=== PATIENT | male | born 1935 | race Caucasian/White ===

== ENCOUNTER → 2016-10-07 | Outpatient (CLI) | payer MEDICARE, BC ==
[~2016-10-07] MED LIST: ACTOS 45MG45 MG/TAB PO; ACTOS30 MG PO; AMLOPIDINE; AMLOPIDINE PO; ASPIR-LOW81 MG PO; ASPIRIN 32325 MG/TAB PO; ASPIRIN E.C. 8181 MG PO; AVODART0.5 MG PO; BUPROPION SR150 MG PO; CEPHALEXIN500 M1 PO; CLARITIN 1010 MG/TAB PO; CLONAZEPAM PO; COLACE 100100 MG/CAP PO; COREG 6.256.25 MG/TA PO; COZAAR100 MG PO; CRESTOR 10MG10 MG PO; DITROPAN 5MG TAB5 MG PO; ENALAPRIL; ENALAPRIL PO; EXFORGE 5 MG-321 TAB PO; EXFORGE 5/320 PO; EXFORGE PO; FLOMAX 0.40.4 MG/CAP PO; GLUCOTROL5 MG PO; HCTZ 25MG25 MG PO; HCTZ PO; HUMALOG 75/2100 U/ML SQ; HUMALOG100 U/ML SQ; KEPPRA 500MG500 MG PO; KLONOPIN 0.5MG0.5 MG PO; LANTUS100 U/ML SQ; LIPITOR 10MG10 MG PO; LIPOFLAVONOID PO; LOPRESSOR 225 MG/TAB PO; LOPRESSOR 550 MG/TAB PO; LORATADINE10 MG PO; LUMIGAN; LUMIGAN 2.5 ML2.5 M1 OP; LUMIGAN EYE GTTS OU; LUMIGAN IO; MULTIPLE VITAMI1 CAP PO; MVI PO; NORCO 325 MG-51 TAB PO; NORVASC 5MG5 MG/TAB PO; POTASSIUM99 MG PO; PRAVACHOL 40MG40 MG PO; PROZAC 10MG10 MG PO; SENNA8.6 MG PO; TOPROL XL25 MG PO; TOVIAZ4 MG PO; VASOTEC20 MG PO; [UNRECOGNIZED DRUG - OTHER] PO
== END ==
LOC: COL.RAD 09:45
DX: D69.49 Other primary thrombocytopenia (principal)

== ENCOUNTER 2017-10-21 17:08 | Emergency (ER) | payer MEDICARE, BC ==
[~2017-10-21] VITALS: Ht 167.6 cm; Wt 86.4 kg
[~2017-10-21 17:08] MED LIST changes: +ARICEPT10 MG PO; +CARDIZEM CD 18180 MG PO; +DEMADEX10 MG PO; +DIOVAN 160MG160 MG PO; +GLUCOTROL 5M5 MG/TAB PO; -GLUCOTROL5 MG PO; +LEVEMIR100 U/ML SQ; +NAMENDA 10MG TA10 MG PO; +RESTORIL 1515 MG/CAP PO; +ZAROXOLYN 2.52.5 MG PO
[2017-10-21 17:17] VITALS: TEMP 96.9
[2017-10-21 18:22] LABS: COLLECTION METHOD CLEAN CATCH
[2017-10-21 18:29] LABS: PH 5 (5-8); SQUAMOUS EPITHELIAL 0-2 /hpf; URINE APPEARANCE Clear; URINE BACTERIA None Seen /hpf; URINE BILIRUBIN Negative (NEGATIVE); URINE BLOOD Negative (NEGATIVE); URINE COLOR Yellow; URINE GLUCOSE Negative (NEGATIVE); URINE KETONE Negative (NEGATIVE); URINE LEUKOCYTE ESTERASE Negative (NEGATIVE); URINE NITRATE Negative (NEGATIVE); URINE PROTEIN(semi-quant) 2+ (NEGATIVE); URINE RBC 0-2 /hpf; URINE UROBILINOGEN Negative (NEGATIVE)
[2017-10-21 19:31] LABS: BASO # 0.1 (0.0-0.2); BASO % 0.5 % (0.0-2.0); EOS # 0.1 (0.0-0.7); EOS % 1.3 % (0-4.0); GRAN # 8.2 (1.4-6.5); GRAN % 78.9 % (42.2-75.2); LYMPH # 1.2 (1.2-3.4); LYMPH % 11.4 % (20.0-51.0); MEAN CELL VOLUME 92 fl (80.0-100.0); MEAN CORPUSCULAR HGB CONC 34 g/dl (33.0-37.0); MEAN PLATELET VOLUME 10.9 fl (7.4-10.4); MONO # 0.8 (0.1-0.6); MONO % 7.6 % (1.7-9.3); PLATELET COUNT 130 K/mm3 (130-400); RED BLOOD COUNT 3.63 M/mm3 (4.20-5.60); REDCELL DISTRIBUTION WIDTH-CV 12.8 % (11.5-14.5)
[2017-10-21 19:33] LABS: HEMATOCRIT 33.4 % (42.0-52.0); HEMOGLOBIN 11.2 g/dl (13.5-18.0); MEAN CORPUSCULAR HEMOGLOBIN 31 pg (27.0-31.0)
[2017-10-21 19:37] LABS: ALBUMIN 3.8 gm/dL (3.5-5.0); BILIRUBIN,TOTAL 0.4 mg/dL (0.0-1.0); CALCIUM 8.8 mg/dL (8.4-10.2); CREATININE, serum 2.23 mg/dL (0.66-1.25); POTASSIUM 3.5 mmol/L (3.4-5.0); TOTAL PROTEIN 6.8 gm/dL (6.4-8.2)
[2017-10-21 20:17] VITALS: BP 188/90; PULSE 62
== END 2017-10-21 20:20 | disposition home or self-care (01) ==
LOC: COL.ER 17:08
PROVIDERS: Family Medicine
DX: S06.0X9A Concussion with loss of consciousness of unspecified duration, initial encounter (principal); S00.83XA Contusion of other part of head, initial encounter; E11.9 Type 2 diabetes mellitus without complications; I50.9 Heart failure, unspecified; F03.90 Unspecified dementia, unspecified severity, without behavioral disturbance, psychotic disturbance, mood disturbance, and anxiety; Z79.82 Long term (current) use of aspirin; Z79.4 Long term (current) use of insulin; W01.198A Fall on same level from slipping, tripping and stumbling with subsequent striking against other object, initial encounter
CPT/HCPCS: J1815; J7030

== ENCOUNTER → 2018-04-04 | Outpatient (CLI) | payer MEDICARE, BC | LOC: COL.RAD 13:25 | DX: I87.1 Compression of vein (principal); Z95.0 Presence of cardiac pacemaker | CPT/HCPCS: Q9967 ==

== ENCOUNTER 2018-06-02 09:17 | Emergency (ER) | payer MEDICARE, BC ==
[~2018-06-02] VITALS: Ht 167.6 cm; Wt 81.8 kg
[2018-06-02 10:31] LABS: BASO # 0.1 (0.0-0.2); BASO % 0.4 % (0.0-2.0); EOS # 0.5 (0.0-0.7); EOS % 4.2 % (0-4.0); GRAN # 9.6 (1.4-6.5); GRAN % 74.8 % (42.2-75.2); HEMATOCRIT 37.7 % (42.0-52.0); HEMOGLOBIN 12.2 g/dl (13.5-18.0); LYMPH # 1.5 (1.2-3.4); LYMPH % 11.9 % (20.0-51.0); MEAN CELL VOLUME 93 fl (80.0-100.0); MEAN CORPUSCULAR HEMOGLOBIN 30 pg (27.0-31.0); MEAN CORPUSCULAR HGB CONC 32 g/dl (33.0-37.0); MEAN PLATELET VOLUME 10.7 fl (7.4-10.4); MONO # 1.1 (0.1-0.6); MONO % 8.4 % (1.7-9.3); PLATELET COUNT 127 K/mm3 (130-400); RED BLOOD COUNT 4.04 M/mm3 (4.20-5.60); REDCELL DISTRIBUTION WIDTH-CV 12.7 % (11.5-14.5)
[2018-06-02 10:42] LABS: ALBUMIN 4.3 gm/dL (3.5-5.0); BILIRUBIN,TOTAL 0.6 mg/dL (0.0-1.0); CALCIUM 10.3 mg/dL (8.4-10.2); CREATININE, serum 2.87 mg/dL (0.66-1.25); MAGNESIUM 2.3 mg/dL (1.6-2.3); PHOSPHOROUS 3.1 mg/dL (2.5-4.5); POTASSIUM 3.6 mmol/L (3.4-5.0); TOTAL PROTEIN 7.9 gm/dL (6.4-8.2)
[2018-06-02 10:55] LABS: TROPONIN-I 0.057 ng/mL (0.000-0.034)
[2018-06-02] MEDS ORDERED: CLARITIN 1010 MG/TAB PO (10:58)
[2018-06-02] MEDS ORDERED: SINEMET CR1 UDTAB.S1 PO (10:58)
[2018-06-02] MEDS ORDERED: ATACAND 16M16 MG/TAB PO (11:04)
[2018-06-02] MEDS ORDERED: TURMERIC500 MG PO (11:05)
[2018-06-02 11:25] LABS: COLLECTION METHOD CLEAN CATCH
[2018-06-02 11:32] LABS: PH 7 (5-8); SQUAMOUS EPITHELIAL None Seen /hpf; URINE APPEARANCE Clear; URINE BACTERIA None Seen /hpf; URINE BILIRUBIN Negative (NEGATIVE); URINE BLOOD 1+ (NEGATIVE); URINE COLOR Straw; URINE GLUCOSE 2+ (NEGATIVE); URINE KETONE Negative (NEGATIVE); URINE LEUKOCYTE ESTERASE Negative (NEGATIVE); URINE NITRATE Negative (NEGATIVE); URINE PROTEIN(semi-quant) 2+ (NEGATIVE); URINE RBC 0-2 /hpf; URINE UROBILINOGEN Negative (NEGATIVE)
[2018-06-02 14:38] VITALS: TEMP 98.2
[2018-06-02 17:40] VITALS: BP 183/81; PULSE 89
== END 2018-06-02 17:40 | disposition home or self-care (01) ==
LOC: COL.ER 09:17
PROVIDERS: Emergency Medicine
DX: F02.80 Dementia in other diseases classified elsewhere, unspecified severity, without behavioral disturbance, psychotic disturbance, mood disturbance, and anxiety (principal); G20 Parkinson's disease; G30.9 Alzheimer's disease, unspecified; R79.89 Other specified abnormal findings of blood chemistry; E11.22 Type 2 diabetes mellitus with diabetic chronic kidney disease; N18.6 End stage renal disease; Z79.82 Long term (current) use of aspirin; Z79.4 Long term (current) use of insulin
CPT/HCPCS: J7030

== ENCOUNTER → 2018-08-13 | Outpatient (CLI) | payer MEDICARE, BC ==
[~2018-08-13] MED LIST changes: +ATACAND 16M16 MG/TAB PO; +SINEMET CR1 UDTAB.S1 PO; +TURMERIC500 MG PO
[2018-08-13 15:47] LABS: CREATININE, serum 3.7 mg/dL (0.66-1.25); POTASSIUM 3.6 mmol/L (3.4-5.0)
== END ==
LOC: ZCOL.LAB 15:34
PROVIDERS: Internal Medicine
DX: G31.84 Mild cognitive impairment of uncertain or unknown etiology (principal); I50.9 Heart failure, unspecified